=== PATIENT | male | born 1960 | race American Indian/Alaskan Native ===

== ENCOUNTER 2016-07-28 06:39 | Emergency (ER) | payer BC ==
[2016-07-28 07:25] VITALS: BP 152/93
[2016-07-28] MEDS ORDERED: TYLENOL PO ONE (09:24)
--- NOTE | 2016-07-28 09:46 | Cat Scan Report ---
CT HEAD WITHOUT CONTRAST: HISTORY: Fall with head trauma, pain. Serial contiguous axial images were obtained through the cranium. Intravenous contrast material was not administered. The ventricles are normal in size and appearance. There is no mass effect or midline shift. No areas of abnormally increased or decreased attenuation are seen. No mass lesion is seen. The mastoid air cells and visualized portions of the sinuses are normal. IMPRESSION: Cranial CT scan within normal limits.
--- NOTE | 2016-07-28 09:50 | Cat Scan Report ---
CT SCAN OF THE CERVICAL SPINE: HISTORY: Fall with neck tenderness, pain. TECHNIQUE: Contiguous 1.25 mm axial images of the cervical spine were obtained. Sagittal and coronal reformatted images. FINDINGS: There is normal alignment of the cervical spine. The body, pedicles and posterior ligaments are intact. Moderate disc space narrowing with circumferential spurring is noted at C5-6, C6-7 and C7-T1. Mild diffuse facet arthropathy. No evidence of fracture or subluxation is seen. The spinal canal appears normal. The prevertebral soft tissues appear normal. IMPRESSION: Moderate cervical spondylosis. No acute process is noted.
[2016-07-28] MEDS ORDERED: TORADOL IM ONE (10:19)
--- NOTE | 2016-07-28 10:29 | Emergency Department Report ---
Entered by ELISA VOGT, acting as scribe for SCOTT GUADARRAMA PA. ED Fall HPI - General Chief Complaint: Fall Stated Complaint: NECK, LF SHOULDER PAIN Source: patient Mode of arrival: Ambulatory Limitations: No Limitations - History of Present Illness Initial Comments: 56 year old male presents to the ED for evaluation of left sided neck pain and left shoulder pain secondary to fall x 2 this morning. Patient reports he was standing in his bedroom, reaching above his head to pull chain on fan when he began feeling "heaviness" in upper body. States he fell backwards and hit his head on dresser before falling to ground, landing on his left shoulder. Patient was able to stand on his own; reports he fell a second time while again reaching above his head. He reports difficulty breathing and chest tightness that began after initial fall but notes it has improved with rest. Patient rates his discomfort as a 9/10 and describes pain as "soreness". He denies LOC and bowel and urinary incontinence. -: This morning Fall From: standing Fall Witnessed: no Place Fall Occurred: home Loss of Consciousness: none Prolonged Down Time?: no Symptoms Prior to Fall: other (overheated, "heaviness") Location: head (pain to back of head), neck (pain to left neck), back (pain to left upper back) Location - Extremities: Left: Shoulder (pain) Severity scale (0 -10): 9 Quality: aching Context: other (while reaching above head) Associated Symptoms: denies (urinary incontinence, bowel incontinence), headache , neck pain, chest paint ("tightness" after fall that has improved with rest), shortness of breath (after fall which has improved with rest). denies: numbness , weakness - Related Data Previous Rx's Medication Instructions Recorded Last Taken Type Naproxen [Naprosyn TAB] 500 mg PO BID #30 tablet 07/28/16 Unknown Rx methOCARBAMOL [Robaxin TAB] 500 mg PO BID #30 tab 07/28/16 Unknown Rx Allergies Allergy/AdvReac Type Severity Reaction Status Date / Time No Known Allergies Allergy Unverified 07/28/16 07:21 ED Review of Systems Comment: All other systems reviewed and negative Respiratory: shortness of breath (following fall, improving with rest) Cardiovascular: chest pain (following fall, improving with rest) Gastrointestinal: other (denies bowel incontinence) Genitourinary: other (denies urinary incontinence) Musculoskeletal: back pain (left upper back), myalgia (left shoulder), other ( left neck pain) Neurological: headache, other (denies LOC). denies: weakness, numbness ED Past Medical Hx - Past Medical History Previous Medical History?: Yes Hx Hypertension: Yes - Surgical History Past Surgical History?: No - Social History Smoking Status: Former Smoker Substance Use Type: Prescribed - Medications Home Medications: Home Medications Medication Instructions Recorded Confirmed Last Taken Type Naproxen [Naprosyn TAB] 500 mg PO BID #30 tablet 07/28/16 Unknown Rx methOCARBAMOL [Robaxin TAB] 500 mg PO BID #30 tab 07/28/16 Unknown Rx ED Physical Exam - General Limitations: No Limitations General appearance: alert, in no apparent distress - Head Head exam: Present: other (2 linear abrasions to parietal scalp with no active bleeding, 1 dime sized abrasion to parietal scalp with no active bleeding) - Eye Eye exam: Present: PERRL, EOMI - Neck Neck exam: Present: tenderness (midline c-spine tenderness noted), full ROM ( full extension, flexion, and left and right rotation of neck without difficulty) - Extremities Exam Extremities exam: Present: full ROM (to bilateral upper extremities) - Back Exam Back exam: Present: tenderness (to left trapezius) - Neurological Exam Neurological exam: Present: alert, oriented X3 - Expanded Neurological Exam Expanded Speech: Present: fluid speech Cranial nerves: EOM's Intact: Normal, Gag Reflex: Normal, Tongue Deviation: Normal Cerebellar function: Finger to Nose: Normal, Heel to Davison: Normal, Romberg: Normal Upper motor neuron: Marcus Neglect: Normal - Psychiatric Psychiatric exam: Present: normal affect, normal mood - Skin Skin exam: Present: abrasion (2 linear abrasions to parietal scalp with no active bleeding, 1 dime sized abrasion to parietal scalp with no active bleeding ) ED Course Vital Signs 07/28/16 07:22 Temperature 97.7 F Pulse Rate 80 Respiratory 20 Rate Blood Pressure 152/93 O2 Sat by Pulse 100 Oximetry ED Medical Decision Making - Radiology Data Radiology results: report reviewed, image reviewed CT HEAD WITHOUT CONTRAST: HISTORY: Fall with head trauma, pain. Serial contiguous axial images were obtained through the cranium. Intravenous contrast material was not administered. The ventricles are normal in size and appearance. There is no mass effect or midline shift. No areas of abnormally increased or decreased attenuation are seen. No mass lesion is seen. The mastoid air cells and visualized portions of the sinuses are normal. IMPRESSION: Cranial CT scan within normal limits. Transcribed By: TTR Dictated By: KODI BURGESS JR, MD Electronically Authenticated By: KODI BURGESS JR, MD Signed Date/Time: 07/28/[address] SCAN OF THE CERVICAL SPINE: HISTORY: Fall with neck tenderness, pain. TECHNIQUE: Contiguous 1.25 mm axial images of the cervical spine were obtained. Sagittal and coronal reformatted images. FINDINGS: There is normal alignment of the cervical spine. The body, pedicles and posterior ligaments are intact. Moderate disc space narrowing with circumferential spurring is noted at C5-6, C6-7 and C7-T1. Mild diffuse facet arthropathy. No evidence of fracture or subluxation is seen. The spinal canal appears normal. The prevertebral soft tissues appear normal. IMPRESSION: Moderate cervical spondylosis. No acute process is noted. Transcribed By: TTR Dictated By: KODI BURGESS JR, MD Electronically Authenticated By: KODI BURGESS JR, MD Signed Date/Time: 07/28/16 0944 - Medical Decision Making He has been evaluated by this provider fast track. CAT scan done for head and cervical period which was within normal limits. Patient's been given Tylenol 975 mg. We will give patient a Toradol shot of 60 mg IM. Discharged him on Robaxin 500 mg by mouth twice a day as well as naproxen 500 mg one tablet by mouth twice a day. Discussed with patient that he needs to follow-up with his primary care provider. We'll also refer him to orthopedics for findings of a cervical spondylosis. He should verbalize understanding ED Disposition Clinical Impression: Fall (on) (from) other stairs and steps, initial encounter, Shoulder pain, left , Neck pain, acute Disposition: DISCHARGED TO HOME OR SELFCARE Is pt being admited?: No Does the pt Need Aspirin: No Condition: Stable Instructions: Fall Prevention (ED), Shoulder Sprain (ED), Cervical Sprain (ED) Additional Instructions: Encourage patient to follow with orthopedic provider for the moderate cervical spondylosis. Discussed the patient taken the Robaxin and naproxen for pain management. Also discussed with patient if he starts to have extreme headache nausea vomiting altered mental status to return to the emergency room for further evaluation. Other than that he is able to follow his primary care provider Prescriptions: methOCARBAMOL [Robaxin TAB] 500 mg PO BID #30 tab Naproxen [Naprosyn TAB] 500 mg PO BID #30 tablet Referrals: PRIMARY CARE, [Primary Care Provider] - 3-5 Days Forms: Work/School Release Form(ED) This documentation as recorded by the TORIE león REBEKAH,accurately reflects the service I personally performed and the decisions made by ,SCOTT GUADARRAMA PA.
== END 2016-07-28 10:34 | disposition home or self-care (01) ==
LOC: ED 06:39
DX: M25.512 Pain in left shoulder (principal); M54.2 Cervicalgia; I10 Essential (primary) hypertension; Z87.891 Personal history of nicotine dependence; W10.9XXA Fall (on) (from) unspecified stairs and steps, initial encounter; Y93.89 Activity, other specified; Y99.8 Other external cause status; Y92.009 Unspecified place in unspecified non-institutional (private) residence as the place of occurrence of the external cause
CPT/HCPCS: 70450; 72125; 96372; 99283; J1885